=== PATIENT | male | born 1990 | race African-American/Black ===

== ENCOUNTER 2024-06-21 08:02 | Emergency (ER) | payer SELFPAY ==
[2024-06-21] MEDS ORDERED: Fluorescein Opthalmic Strip ONE (08:51)
[2024-06-21] MEDS ORDERED: Tetracaine 0.5% PF 4 ML BOT ONE (08:51)
[2024-06-21] MEDS ORDERED: Erythromycin Base 0.5% Oint 1 GM TUBE ONE (09:26)
[2024-06-21] MEDS ORDERED: Ibuprofen 200 MG TAB ONE (09:26)
== END 2024-06-21 09:40 | disposition home or self-care (01) ==
LOC: CSHERS 08:02
DX: H11.421 Conjunctival edema, right eye (principal)
CPT/HCPCS: 99283